=== PATIENT | female | born 1940 | race Caucasian/White ===

== ENCOUNTER 2018-04-10 07:01 | Outpatient (CLI) | payer OTHER | END 2018-04-10 07:02 | disposition home or self-care (01) | LOC: BICULT 07:01 | PROVIDERS: ATTEND Internal Medicine | DX: R19.00 Intra-abdominal and pelvic swelling, mass and lump, unspecified site (principal); R10.9 Unspecified abdominal pain; I70.0 Atherosclerosis of aorta | CPT/HCPCS: 76700 ==

== ENCOUNTER 2019-09-10 09:16 | Outpatient (CLI) | payer MEDICARE, OTHER ==
--- NOTE | 2019-09-10 11:24 | RAD ---
CHEST TWO VIEWS: HISTORY: Dyspnea. FINDINGS: The lungs appear clear. No infiltrate or vascular congestion. Heart and mediastinum unremarkable. Pro minent aortic calcification. Bilateral breast implants which show capsular calcification. Osseous str uctures unremarkable. IMPRESSION: No evidence of acute process. POS: [facility]
== END 2019-09-10 09:17 | disposition home or self-care (01) ==
LOC: RAD 09:16
PROVIDERS: ATTEND Internal Medicine Critical Care Medicine
DX: R06.00 Dyspnea, unspecified (principal)
CPT/HCPCS: 71046

== ENCOUNTER 2019-09-24 10:13 | Outpatient (CLI) | payer MEDICARE, OTHER ==
--- NOTE | 2019-09-24 10:48 | CT ---
CT Chest WO Con History: Thoracic pain. M 55.6 Comparison: Chest radiograph September 10, 2019 Findings: Moderate centrilobular emphysema. There is a small spiculated nodule in the left upper lobe near the apex axial image 19 measuring 5 to 6 mm. This is adjacent to an area of pleural scarring. There is a 7 mm nodule in the left upper lobe axial image 42. Spiculated mass anterior segment left upper lobe axial image 59 measuring 1.7 cm with retraction of t he accessory left horizontal fissure. There is also a part solid nodule within the superior segment left lower lobe axial image 70 measuring 1.5 cm. Calcified granuloma right middle lobe. There is a focal area of bronchial atresia within the lateral left lingula axial image 106. Thoracic spine is without compression deformity. No suspicious osteolytic or osteoblastic lesions. Osseous fusion of the sternum and manubrium. No acute displaced rib fracture. Left superior renal calculi. Impression: 1. Spiculated left upper lobe and part solid right lower lobe pulmonary nodules as described concerni ng for malignancy. Smaller nodules as described may reflect satellite lesions versus noncalcified granulomas. Pulmonary consultation advised. 2. Nonobstructive left renal calculus. 3. No mediastinal adenopathy. 4. Moderate centrilobular emphysema.
== END 2019-09-24 10:14 | disposition home or self-care (01) ==
LOC: BICCT 10:13
PROVIDERS: ATTEND Internal Medicine Critical Care Medicine
DX: M54.6 Pain in thoracic spine (principal); R91.8 Other nonspecific abnormal finding of lung field; N20.0 Calculus of kidney; J43.2 Centrilobular emphysema
CPT/HCPCS: 71250

== ENCOUNTER 2020-02-19 09:18 | Outpatient (CLI) | payer MEDICARE, OTHER ==
--- NOTE | 2020-02-19 09:58 | CT ---
EXAM: CT Chest WO Con PROVIDED CLINICAL HISTORY: Pulmonary nodules COMPARISON: 09/24/2019 FINDINGS: Vascular calcification including coronary calcium is demonstrated. The heart, pericardium and great v essels are suboptimally evaluated in the absence of IV contrast but demonstrate an otherwise unremarkable CT appearance. There is no evidence for thoracic lymph node enlargement. The airway appears patent and of normal caliber. The 4 mm left apical and lateral upper lobe solid nodules appear stable. Stable subtle groundglass nodule involving cranial aspects of superior segment left upper lobe. This measures approximately 9 mm. Stable right middle lobe groundglass nodule measuring about 7 mm. Stable 11 mm right upper lobe groundglass nodule. Interval enlargement of spiculated heart solid anterior segment left upper lobe nodule, now measuring about 2.2 x 1.8 cm in greatest transverse dimensions. Interval enlargement of spiculated part solid nodule involving the superior segment of the right lowe r lobe, now measuring about 2.0 x 1.4 cm in greatest transverse dimensions. Stable parenchymal scarring involving the lingula. No pleural fluid, pleural thickening or pneumothor ax apparent. IMPRESSION: 1. Interval enlargement of part solid left upper lobe and superior segment right lower lobe pulmonary nodules, highly suspicious for malignancy. 2. Stable bilateral groundglass nodules for which continued follow-up is recommended per Earlene scott. 3. Stable 4 mm left upper lobe solid nodules. 4. Atherosclerosis.
== END 2020-02-19 09:19 | disposition home or self-care (01) ==
LOC: BICCT 09:18
PROVIDERS: ATTEND Internal Medicine Critical Care Medicine
DX: R91.1 Solitary pulmonary nodule (principal); R91.8 Other nonspecific abnormal finding of lung field; I25.10 Atherosclerotic heart disease of native coronary artery without angina pectoris; I70.90 Unspecified atherosclerosis
CPT/HCPCS: 71250

== ENCOUNTER 2020-06-02 10:25 | Outpatient (CLI) | payer MEDICARE, OTHER ==
--- NOTE | 2020-06-02 13:19 | CT ---
CT CHEST WITHOUT CONTRAST: DATE: 06/02/2020. PROVIDED CLINICAL HISTORY: Pulmonary nodules. FINDINGS: Comparison is made with the study dated 02/19/2020. The heart, pericardium, and great vessels are suboptimally evaluated in the absence of IV contrast ma terial. Conspicuous atherosclerosis including coronary calcium is redemonstrated. There is no evidence for thoracic lymph node enlargement, with limitations due to lack of IV contrast . Extensive emphysematous changes are redemonstrated. Spiculated part solid nodules involving the left upper lobe and superior segment of right lower lobe are redemonstrated, without significant interval change apparent with respect to the prior study. Ground-glass nodules within the superior segment o f the left lower lobe as well as within the right middle lobe also appear stable. Noncalcified solid -appearing nodules of the left upper lobe do not appear significantly changed. There is no evidence for a new nodule. There is no pleural fluid or pneumothorax apparent. The visualized portions of the upper abdomen demonstrate no acute abnormality. The osseous structures demonstrate no concerning lytic or blastic lesions. IMPRESSION: Stable exam. POS: AH
== END 2020-06-02 10:26 | disposition home or self-care (01) ==
LOC: BICCT 10:25
PROVIDERS: ATTEND Internal Medicine Critical Care Medicine
DX: R91.1 Solitary pulmonary nodule (principal)
CPT/HCPCS: 71250

== ENCOUNTER 2020-09-30 12:03 | Outpatient (CLI) | payer MEDICARE, OTHER ==
--- NOTE | 2020-09-30 14:01 | CT ---
Exam: Chest CT without contrast COMPARISON: 06/02/2010, 09/24/2019, 03/08/2020, correlation is PET imaging 06/29/2020 HISTORY: Follow-up lung nodule FINDINGS: Limited evaluation the mediastinum due to lack of IV contrast. No mass, nephropathy or hematoma Aorta: Extensive atherosclerosis HEART: Normal heart size. No significant pericardial effusion. There are coronary calcifications. Bilateral calcified breast implants are noted Subdiaphragmatic structures do not demonstrate any acute abnormality No lytic or blastic lesions in the osseous structures. Trachea and central bronchi: Patent Pleural spaces: No effusion Pneumothorax: None Right lung: Ill-defined groundglass opacity in the superior segment of the right lower lobe. In 2018, this opacity was 1.7 x 1.0 cm. No appreciable change. Ill-defined opacity in the middle lobe measuring 0.5 x 0.6 cm. In October 07, this lesion measured 0.6 x 0.6 cm Left lung: Redemonstration of a spiculated mass in the left upper lobe measuring 2.5 x 1.3 cm. In 2018, this lesion measured 2.0 x 1.4 cm. In February 2020, the lesion measured 2.8 x 1.4 cm. In May 2020, this lesion measured 1.4 x 2.5 cm. Stable ill-defined opacity in the superior segment of l eft lower lobe measuring 0.6 x 1.0 cm. Stable scarring in the lingula and left lower lobe. Stable 0.4 cm nodule in the lateral aspect of the left upper lobe and stable 0.4 cm nodule in the left lung apex. IMPRESSION: Stable lung parenchymal nodules. Transcribed Date/Time: 09/30/2020 2:22 PM
== END 2020-09-30 12:04 | disposition home or self-care (01) ==
LOC: CT 12:03
PROVIDERS: ATTEND Internal Medicine Critical Care Medicine
DX: R91.8 Other nonspecific abnormal finding of lung field (principal)
CPT/HCPCS: 71250

== ENCOUNTER 2021-04-06 09:28 | Outpatient (CLI) | payer MEDICARE, OTHER | END 2021-04-06 09:29 | disposition home or self-care (01) | LOC: BICCT 09:28 | PROVIDERS: ATTEND Internal Medicine Critical Care Medicine | DX: R91.8 Other nonspecific abnormal finding of lung field (principal) | CPT/HCPCS: 71250 ==

== ENCOUNTER 2021-09-29 08:56 | Outpatient (CLI) | payer MEDICARE, OTHER | END 2021-09-29 08:57 | disposition home or self-care (01) | LOC: PET 08:56 | PROVIDERS: ATTEND Internal Medicine Critical Care Medicine | DX: R91.8 Other nonspecific abnormal finding of lung field (principal); R91.1 Solitary pulmonary nodule | CPT/HCPCS: 78815; A9552 ==

== ENCOUNTER 2022-07-25 08:13 | Outpatient (CLI) | payer MEDICARE, OTHER | END 2022-07-25 08:14 | disposition home or self-care (01) | LOC: BICCT 08:13 | PROVIDERS: ATTEND Internal Medicine Critical Care Medicine | DX: R91.8 Other nonspecific abnormal finding of lung field (principal) | CPT/HCPCS: 71250 ==

== ENCOUNTER 2022-10-25 08:41 | Outpatient (CLI) | payer MEDICARE, OTHER | END 2022-10-25 08:42 | disposition home or self-care (01) | LOC: BICCT 08:41 | PROVIDERS: ATTEND Internal Medicine Critical Care Medicine | DX: R91.8 Other nonspecific abnormal finding of lung field (principal) | CPT/HCPCS: 71250 ==

== ENCOUNTER 2023-03-13 10:34 | Outpatient (CLI) | payer MEDICARE, OTHER | END 2023-03-13 10:35 | disposition home or self-care (01) | LOC: BICMRI 10:34 | PROVIDERS: ATTEND Specialist | DX: M48.062 Spinal stenosis, lumbar region with neurogenic claudication (principal); M47.816 Spondylosis without myelopathy or radiculopathy, lumbar region; M47.815 Spondylosis without myelopathy or radiculopathy, thoracolumbar region; M47.817 Spondylosis without myelopathy or radiculopathy, lumbosacral region | CPT/HCPCS: 72148 ==

== ENCOUNTER 2023-05-08 07:34 | Outpatient (CLI) | payer MEDICARE, OTHER | END 2023-05-08 07:35 | disposition home or self-care (01) | LOC: BICCT 07:34 | PROVIDERS: ATTEND Internal Medicine Critical Care Medicine | DX: R91.8 Other nonspecific abnormal finding of lung field (principal); J98.4 Other disorders of lung | CPT/HCPCS: 71250 ==

== ENCOUNTER 2023-10-01 12:02 | Inpatient (IN) | payer MEDICARE, OTHER ==
[2023-10-01 12:56] LABS: #Basophils 0.1 thou/uL (0.0-0.2); #Eosinphils 0.2 thou/uL (0.0-0.7); #Monocytes 1.3 thou/uL (0.11-0.59); #Neutrophils 5.4 thou/uL (1.40-6.50); %Basophils 0.7 % (0.0-1.0); %Eosinophils 2.3 % (0.0-10.0); %Lymphocytes 17.9 % (21.0-51.0); %Monocytes 14.8 % (0.0-10.0); %Neutrophils 63.6 % (42.0-75.0); Hematocrit 38.1 % (36.0-47.0); Hemoglobin 12.8 g/dL (12.0-16.0); Mean Corpuscular HGB CONC 33.6 g/dL (32.0-36.0); Mean Corpuscular Volume 89.4 fl (78.0-98.0); Mean Platelet Volume 11.2 fL (7.4-10.4); Platelet Count 229 10x3/uL (130-400); RBC Distribution Width 13.3 % (11.5-14.5); Red Blood Cell (RBC) Count 4.26 mill/uL (4.20-5.40); White Blood Cell (WBC) Count 8.5 10x3/uL (4.8-10.8)
[2023-10-01 13:25] LABS: ALT (SGPT) 18 U/L (8-55); AST (SGOT) 30 U/L (5-34); Albumin 4.1 g/dL (3.4-4.8); Alkaline Phosphatase 104 U/L (40-110); Anion Gap 11 mmol/L (10-20); BUN (Urea Nitrogen) 13 mg/dL (9.8-20.1); Bilirubin, Total 0.6 mg/dL (0.2-1.2); Calc. Creatinine Clearance 0 mL/min (70-130); Carbon Dioxide 24 mmol/L (23-31); Chloride 101 mmol/L (98-107); Estimated GFR 79; Globulin 2.3 g/dL (2.4-3.5); Glucose 120 mg/dL (83-110); Potassium 3.4 mmol/L (3.5-5.1); Protein, Total 6.4 g/dL (5.8-8.1); Sodium 133 mmol/L (136-145)
[2023-10-01 13:29] LABS: Troponin I 0.011 ng/mL (< 0.028)
[2023-10-01] MEDS ORDERED: Famotidine/PF 20 mg/2ml Vial ONE (14:16)
[2023-10-01] MEDS ORDERED: Ketorolac Tromethamine 30 MG/ML VIAL ONE (14:38)
[2023-10-01] MEDS ORDERED: Lidocaine 1% w/Epinephrine 1:100K 20 ML VIAL FS SCH (15:00)
[2023-10-01] MEDS ORDERED: Bacitracin 1 PK ONE (15:46)
[2023-10-01] MEDS ORDERED: Lidocaine 1% PF 5 ML VIAL ONE (15:46)
[2023-10-01] MEDS ORDERED: Ondansetron PF 4 MG/2 ML Vial IVP PRN (16:00)
[2023-10-01] MEDS ORDERED: Morphine 2 MG/ML VIAL SLOW IVP PRN (16:00)
[2023-10-01] MEDS ORDERED: Ipratropium/Albuterol 3 ML NEB NEB PRN (16:00)
[2023-10-01] MEDS ORDERED: traMADol HCl 50 MG TAB PO PRN (16:02)
[2023-10-01] MEDS: Acetaminophen 500 MG TAB PO SCH ×2 (17:42→22:15)
[2023-10-01] MEDS: traMADol HCl 50 MG TAB PO SCH (17:47)
[2023-10-01] MEDS: Cyclobenzaprine 10 MG TAB PO PRN (17:47)
[2023-10-01] MEDS: Lactated Ringer's 1,000 ML IV SCH (17:47)
[2023-10-01] MEDS ORDERED: Potassium Chloride 20 MEQ in Premix 1 BAG IVPB SCH (20:00)
[2023-10-01] MEDS: fentaNYL 50 mcg/mL 1 mL Vial SLOW IVP PRN (20:08)
[2023-10-01] MEDS: Senokot S 8.6-50 MG TAB PO SCH (20:10)
[2023-10-01 21:27] VITALS: BMI 21.8
[2023-10-02] MEDS: fentaNYL 50 mcg/mL 1 mL Vial SLOW IVP PRN (00:45)
[2023-10-02] MEDS: Acetaminophen 500 MG TAB PO SCH ×4 (04:34→21:22)
[2023-10-02] MEDS: Cyclobenzaprine 10 MG TAB PO PRN ×2 (04:43→09:59)
[2023-10-02 05:00] LABS: #Monocytes 1.5 thou/uL (0.11-0.59); #Neutrophils 8.8 thou/uL (1.40-6.50); %Basophils 0.4 % (0.0-1.0); %Eosinophils 0.3 % (0.0-10.0); %Lymphocytes 6.3 % (21.0-51.0); %Monocytes 13.1 % (0.0-10.0); %Neutrophils 79.4 % (42.0-75.0); Hematocrit 30.9 % (36.0-47.0); Hemoglobin 10.3 g/dL (12.0-16.0); Mean Corpuscular HGB CONC 33.3 g/dL (32.0-36.0); Mean Corpuscular Hemoglobin 30.1 pg (27.0-31.0); Mean Corpuscular Volume 90.4 fl (78.0-98.0); Mean Platelet Volume 10.9 fL (7.4-10.4); Platelet Count 159 10x3/uL (130-400); RBC Distribution Width 13.2 % (11.5-14.5); Red Blood Cell (RBC) Count 3.42 mill/uL (4.20-5.40); White Blood Cell (WBC) Count 11.1 10x3/uL (4.8-10.8)
[2023-10-02 05:07] LABS: INR-International Normal Ratio 1.1; Prothrombin Time 14.9 sec (12.0-14.7)
[2023-10-02 05:08] LABS: PTT 28.8 sec (22.9-36.1)
[2023-10-02 05:27] LABS: Anion Gap 12 mmol/L (10-20); BUN (Urea Nitrogen) 15 mg/dL (9.8-20.1); Calc. Creatinine Clearance 60 mL/min (70-130); Calcium 8.6 mg/dL (7.8-10.44); Carbon Dioxide 23 mmol/L (23-31); Chloride 101 mmol/L (98-107); Estimated GFR 87; Glucose 104 mg/dL (83-110); Potassium 3.9 mmol/L (3.5-5.1); Sodium 132 mmol/L (136-145)
[2023-10-02] MEDS: Lactated Ringer's 1,000 ML IV SCH ×2 (06:28→12:39)
[2023-10-02] MEDS: traMADol HCl 50 MG TAB PO SCH ×5 (07:11→23:58)
[2023-10-02] MEDS ORDERED: CEFAZOLIN 2 GM in Sodium Chloride 0.9% 100 ML IVPB SCH (07:30)
[2023-10-02] MEDS: Famotidine/PF 20 mg/2ml Vial SLOW IVP SCH (09:34)
[2023-10-02] MEDS: Senokot S 8.6-50 MG TAB PO SCH ×2 (09:35→21:22)
[2023-10-02] MEDS: Atenolol 50 MG TAB PO SCH ×2 (09:35→09:46)
[2023-10-02] MEDS: Polyethylene Glycol 3350 17 GM Packet PO SCH (09:35)
[2023-10-02] MEDS ORDERED: Nebivolol HCl 5 MG TAB PO SCH (10:15)
[2023-10-02] MEDS: Methocarbamol 500 MG TAB PO PRN (12:30)
[2023-10-02] MEDS ORDERED: fentaNYL PF 100 MCG/2 ML SYRINGE ONE (15:13)
[2023-10-02] MEDS ORDERED: PROPOFOL 40 ML ONE (15:13)
[2023-10-02] MEDS ORDERED: Ondansetron PF 4 MG/2 ML Vial ONE ×2 (15:19→15:47)
[2023-10-02] MEDS ORDERED: Rocuronium Bromide 10 MG/ML (10ML VIAL) ONE ×2 (15:19→15:47)
[2023-10-02] MEDS ORDERED: Dexamethasone 4 mg/ml Vial ONE (15:19)
[2023-10-02] MEDS ORDERED: Lidocaine 1% PF 5 ML VIAL ONE ×2 (15:19→15:47)
[2023-10-02] MEDS ORDERED: CEFAZOLIN 2 GM VIAL ONE (15:20)
[2023-10-02] MEDS ORDERED: Sodium Chloride 0.9% 100 ML ONE (15:21)
[2023-10-02] MEDS ORDERED: PHENYLEPHRINE-NS 100 MCG/ML 10 ML SYRINGE ONE ×2 (15:22→15:47)
[2023-10-02] MEDS ORDERED: PROPOFOL 200 MG/20 ML VIAL ONE (15:47)
[2023-10-02] MEDS ORDERED: Dexamethasone 20 MG/5 ML VIAL ONE (15:47)
[2023-10-02] MEDS ORDERED: Glycopyrrolate 0.2 MG/ML 5 ML SYRINGE ONE (15:47)
[2023-10-02 15:59] LABS: Bacteria/HPF None Seen HPF (None Seen); Bilirubin Negative (Negative); Blood, Urine Negative (Negative); CAUTI Indications for Culture Dysuria,urgency,freq; Clarity Clear (Clear); Glucose, Urine (Dipstick) Normal (Negative); Ketone, Urine Negative (Negative); Leukocyte 25 Leu/uL (Negative); Nitrite Negative (Negative); Protein, Urine (Dipstick) Negative (Neg-Trace); RBC/HPF 0-3 HPF (0-3); Specific Gravity, Urine 1.009 (1.002-1.036); Squamous Epithelial None Seen HPF (0-3); Urobilinogen Normal mg/dL (Less than 2); WBC/HPF 0-3 HPF (0-3)
[2023-10-02 16:03] LABS: Urine Culture Reflex No No
[2023-10-02] MEDS ORDERED: ePHEDrine Sulfate 50 MG/10 ML VIAL ONE (16:13)
[2023-10-02] MEDS ORDERED: SUGAMMADEX SODIUM 200 MG/2 ML VIAL ONE (16:31)
[2023-10-02] MEDS: CEFAZOLIN 2 GM in Sodium Chloride 0.9% 100 ML IVPB SCH (23:59)
[2023-10-03] MEDS: Acetaminophen 500 MG TAB PO SCH ×4 (05:28→22:59)
[2023-10-03] MEDS: traMADol HCl 50 MG TAB PO SCH ×4 (06:36→23:01)
[2023-10-03] MEDS: CEFAZOLIN 2 GM in Sodium Chloride 0.9% 100 ML IVPB SCH (06:36)
[2023-10-03] MEDS: Famotidine/PF 20 mg/2ml Vial SLOW IVP SCH (08:35)
[2023-10-03] MEDS: Senokot S 8.6-50 MG TAB PO SCH ×2 (08:35→20:04)
[2023-10-03] MEDS: Polyethylene Glycol 3350 17 GM Packet PO SCH (08:36)
[2023-10-03] MEDS: Calcium Carbonate 500 MG ChewTAB PO PRN ×3 (09:58→20:05)
[2023-10-03] MEDS: Lactated Ringer's 1,000 ML IV SCH ×2 (11:53)
[2023-10-03] MEDS: Methocarbamol 500 MG TAB PO PRN (20:05)
[2023-10-04] MEDS: Acetaminophen 500 MG TAB PO SCH ×4 (05:10→23:13)
[2023-10-04] MEDS: traMADol HCl 50 MG TAB PO SCH ×4 (05:11→23:13)
[2023-10-04] MEDS ORDERED: Levothyroxine Sodium 50 MCG TAB PO SCH (08:45)
[2023-10-04] MEDS: Calcium Carbonate 500 MG ChewTAB PO PRN ×2 (08:48→21:28)
[2023-10-04] MEDS: Senokot S 8.6-50 MG TAB PO SCH ×2 (08:49→21:28)
[2023-10-04] MEDS: Polyethylene Glycol 3350 17 GM Packet PO SCH (08:49)
[2023-10-04] MEDS: Methocarbamol 500 MG TAB PO PRN (17:20)
[2023-10-04] MEDS: Temazepam 15 MG CAP PO SCH ×2 (21:29→23:13)
[2023-10-05] MEDS: traMADol HCl 50 MG TAB PO SCH ×2 (05:32→12:56)
[2023-10-05] MEDS: Acetaminophen 500 MG TAB PO SCH ×2 (05:32→11:41)
[2023-10-05] MEDS ORDERED: Levothyroxine Sodium 50 MCG TAB PO SCH (06:00)
[2023-10-05] MEDS: Senokot S 8.6-50 MG TAB PO SCH (09:19)
[2023-10-05] MEDS: Polyethylene Glycol 3350 17 GM Packet PO SCH (09:19)
[2023-10-05] MEDS: Methocarbamol 500 MG TAB PO PRN (09:27)
[2023-10-05 13:05] VITALS: BP 149/67; TEMP 98.6
== END 2023-10-05 14:30 | DRG 522 ==
LOC: ERS 12:02 → SURG A 16:03
PROVIDERS: ADMIT Surgery; ATTEND Surgery
PROC: 0HQGXZZ Repair Left Hand Skin, External Approach (ICD-10-PCS; 2023-10-01)
PROC: 0HQ0XZZ Repair Scalp Skin, External Approach (ICD-10-PCS; 2023-10-01)
PROC: 0SRS0JA Replacement of Left Hip Joint, Femoral Surface with Synthetic Substitute, Uncemented, Open Approach (ICD-10-PCS; principal; 2023-10-02)
DX: S72.032A Displaced midcervical fracture of left femur, initial encounter for closed fracture (principal); S42.202A Unspecified fracture of upper end of left humerus, initial encounter for closed fracture; I10 Essential (primary) hypertension; S01.01XA Laceration without foreign body of scalp, initial encounter; S61.412A Laceration without foreign body of left hand, initial encounter; W19.XXXA Unspecified fall, initial encounter; D32.9 Benign neoplasm of meninges, unspecified; Y92.009 Unspecified place in unspecified non-institutional (private) residence as the place of occurrence of the external cause; Z88.2 Allergy status to sulfonamides
CPT/HCPCS: 12002; 36415; 36416; 70450; 71045; 72125; 72170; 80048; 80053; 81001; 84443; 84484; 85025; 85610; 85730; 93005; 96374; 96375; C1713; C1776; G0390; J1100; J1650; J1885; J2405; J2704; J3010; J3480; J3490; J7120; S0028

== ENCOUNTER 2023-11-01 08:54 | Outpatient (CLI) | payer MEDICARE, OTHER | END 2023-11-01 08:55 | disposition home or self-care (01) | LOC: RAD 08:54 | PROVIDERS: ATTEND Internal Medicine Critical Care Medicine | DX: R06.00 Dyspnea, unspecified (principal); J98.4 Other disorders of lung | CPT/HCPCS: 71046 ==

== ENCOUNTER 2024-02-08 09:26 | Outpatient (CLI) | payer MEDICARE, OTHER | END 2024-02-08 09:27 | disposition home or self-care (01) | LOC: BICCT 09:26 | PROVIDERS: ATTEND Internal Medicine Critical Care Medicine | DX: R91.8 Other nonspecific abnormal finding of lung field (principal) | CPT/HCPCS: 71250 ==

== ENCOUNTER 2024-06-03 16:37 | Inpatient (IN) | payer MEDICARE, OTHER ==
[2024-06-03] MEDS ORDERED: Ondansetron PF 4 MG/2 ML Vial IVP PRN (18:05)
[2024-06-03 18:21] VITALS: BMI 20.5
[2024-06-03] MEDS: Budesonide 0.5 MG/2 ML NEB INH SCH (18:52)
[2024-06-03] MEDS: Albuterol 2.5 MG (3 mL) NEB NEB PRN (18:54)
[2024-06-03] MEDS: Calcium Carbonate 500 MG ChewTAB PO PRN (19:54)
[2024-06-03] MEDS: Cyclobenzaprine 10 MG TAB PO PRN (19:54)
[2024-06-03] MEDS: Acetaminophen 500 MG TAB PO PRN (19:57)
[2024-06-03] MEDS: Atorvastatin Calcium 10 MG TAB PO SCH (20:02)
[2024-06-03] MEDS: Temazepam 15 MG CAP PO PRN (22:19)
[2024-06-04 03:58] LABS: #Basophils 0.05 10x3/uL (0.0-0.2); %Basophils 0.3 % (0.0-1.0); %Eosinophils 0.8 % (0.0-10.0); %Lymphocytes 6.3 % (21.0-51.0); %Monocytes 11.7 % (0.0-10.0); %Neutrophils 80.1 % (42.0-75.0); Hematocrit 38.2 % (36.0-47.0); Hemoglobin 12.9 g/dL (12.0-16.0); Mean Corpuscular HGB CONC 33.8 g/dL (32.0-36.0); Mean Corpuscular Hemoglobin 31.3 pg (27.0-31.0); Mean Corpuscular Volume 92.7 fL (78.0-98.0); Mean Platelet Volume 9.9 fL (7.4-10.4); Platelet Count 278 10x3/uL (130-400); RBC Distribution Width 13.8 % (11.5-14.5); Red Blood Cell (RBC) Count 4.12 mill/uL (4.20-5.40)
[2024-06-04 04:38] LABS: Anion Gap 13 mmol/L (10-20); BUN (Urea Nitrogen) 17 mg/dL (9.8-20.1); Calc. Creatinine Clearance 45 mL/min (70-130); Calcium 9.7 mg/dL (7.8-10.44); Carbon Dioxide 26 mmol/L (23-31); Chloride 96 mmol/L (98-107); Estimated GFR 68; Glucose 98 mg/dL (83-110); Potassium 4.4 mmol/L (3.5-5.1); Sodium 131 mmol/L (136-145)
[2024-06-04] MEDS: Levothyroxine Sodium 50 MCG TAB PO SCH (06:17)
[2024-06-04] MEDS: Spironolactone 25 MG TAB PO SCH (10:56)
[2024-06-04] MEDS: Pantoprazole DR 40 MG TAB PO SCH (10:56)
[2024-06-04] MEDS: Nebivolol HCl 2.5 MG TAB PO SCH (10:57)
[2024-06-05] MEDS ORDERED: fentaNYL 50 mcg/mL 1 mL Vial ONE (07:37)
[2024-06-05 11:29] LABS: #Basophils 0.03 10x3/uL (0.0-0.2); %Basophils 0.2 % (0.0-1.0); %Eosinophils 0.6 % (0.0-10.0); %Lymphocytes 2.6 % (21.0-51.0); %Monocytes 9.3 % (0.0-10.0); %Neutrophils 86.7 % (42.0-75.0); Hematocrit 37.6 % (36.0-47.0); Hemoglobin 12.7 g/dL (12.0-16.0); Mean Corpuscular HGB CONC 33.8 g/dL (32.0-36.0); Mean Corpuscular Hemoglobin 30.8 pg (27.0-31.0); Mean Corpuscular Volume 91.3 fL (78.0-98.0); Mean Platelet Volume 9.7 fL (7.4-10.4); Platelet Count 245 10x3/uL (130-400); RBC Distribution Width 13.7 % (11.5-14.5); Red Blood Cell (RBC) Count 4.12 mill/uL (4.20-5.40)
[2024-06-05 11:46] LABS: ALT (SGPT) 15 U/L (8-55); AST (SGOT) 25 U/L (5-34); Albumin 3.2 g/dL (3.4-4.8); Alkaline Phosphatase 89 U/L (40-110); Anion Gap 9 mmol/L (10-20); BUN (Urea Nitrogen) 20 mg/dL (9.8-20.1); Bilirubin, Total 0.9 mg/dL (0.2-1.2); Calc. Creatinine Clearance 45 mL/min (70-130); Calcium 9.5 mg/dL (7.8-10.44); Carbon Dioxide 24 mmol/L (23-31); Chloride 97 mmol/L (98-107); Estimated GFR 68; Globulin 2.8 g/dL (2.4-3.5); Glucose 120 mg/dL (83-110); Potassium 4.4 mmol/L (3.5-5.1); Sodium 126 mmol/L (136-145)
[2024-06-05] MEDS: Sodium Chloride 0.9% 1,000 ML IV SCH (12:50)
[2024-06-05 13:13] LABS: Troponin I 0.014 ng/mL (< 0.028)
[2024-06-05] MEDS: Sodium Chloride 0.9% 500 ML IV SCH (15:54)
[2024-06-05 17:00] LABS: Bacteria/HPF 4+ HPF (None Seen); Bilirubin Negative (Negative); Blood, Urine Negative (Negative); Clarity Turbid (Clear); Glucose, Urine (Dipstick) Normal (Negative); Ketone, Urine Negative (Negative); Leukocyte 500 Leu/uL (Negative); Nitrite 1+ (Negative); Protein, Urine (Dipstick) Negative (Neg-Trace); RBC/HPF 0-3 HPF (0-3); Specific Gravity, Urine 1.018 (1.002-1.036); Squamous Epithelial None Seen HPF (0-3); Urobilinogen Normal mg/dL (Less than 2); WBC/HPF 21-50 HPF (0-3)
[2024-06-05 17:25] LABS: Creatinine, Urine 109.37 mg/dL (47-110)
[2024-06-05 17:59] LABS: Anion Gap 9 mmol/L (10-20); BUN (Urea Nitrogen) 18 mg/dL (9.8-20.1); Calc. Creatinine Clearance 45 mL/min (70-130); Calcium 8.8 mg/dL (7.8-10.44); Carbon Dioxide 24 mmol/L (23-31); Chloride 99 mmol/L (98-107); Estimated GFR 68; Glucose 97 mg/dL (83-110); Potassium 4.4 mmol/L (3.5-5.1); Sodium 128 mmol/L (136-145)
[2024-06-05] MEDS: Senokot S 8.6-50 MG TAB PO PRN (20:56)
[2024-06-06] MEDS ORDERED: Levothyroxine Sodium 50 MCG TAB ONE (05:23)
[2024-06-06 08:01] LABS: #Basophils 0.04 10x3/uL (0.0-0.2); %Basophils 0.4 % (0.0-1.0); %Eosinophils 2.3 % (0.0-10.0); %Lymphocytes 9.9 % (21.0-51.0); %Monocytes 11.3 % (0.0-10.0); %Neutrophils 75.3 % (42.0-75.0); Hematocrit 37.8 % (36.0-47.0); Hemoglobin 12.8 g/dL (12.0-16.0); Mean Corpuscular HGB CONC 33.9 g/dL (32.0-36.0); Mean Corpuscular Hemoglobin 31.5 pg (27.0-31.0); Mean Corpuscular Volume 93.1 fL (78.0-98.0); Mean Platelet Volume 10.1 fL (7.4-10.4); Platelet Count 267 10x3/uL (130-400); RBC Distribution Width 13.8 % (11.5-14.5); Red Blood Cell (RBC) Count 4.06 mill/uL (4.20-5.40)
[2024-06-06 08:05] LABS: ALT (SGPT) 18 U/L (8-55); AST (SGOT) 31 U/L (5-34); Albumin 3.2 g/dL (3.4-4.8); Alkaline Phosphatase 90 U/L (40-110); Anion Gap 10 mmol/L (10-20); BUN (Urea Nitrogen) 16 mg/dL (9.8-20.1); Bilirubin, Total 0.6 mg/dL (0.2-1.2); Calc. Creatinine Clearance 47 mL/min (70-130); Calcium 9.6 mg/dL (7.8-10.44); Carbon Dioxide 24 mmol/L (23-31); Chloride 99 mmol/L (98-107); Estimated GFR 71; Glucose 98 mg/dL (83-110); Potassium 4.3 mmol/L (3.5-5.1); Protein, Total 6.2 g/dL (5.8-8.1); Sodium 129 mmol/L (136-145)
[2024-06-06 19:37] LABS: Potassium 3.8 mmol/L (3.5-5.1); Sodium 130 mmol/L (136-145)
[2024-06-07 08:12] LABS: #Basophils 0.03 10x3/uL (0.0-0.2); %Basophils 0.3 % (0.0-1.0); %Eosinophils 2.5 % (0.0-10.0); %Lymphocytes 12.7 % (21.0-51.0); %Monocytes 9.6 % (0.0-10.0); %Neutrophils 74.3 % (42.0-75.0); Hematocrit 35.8 % (36.0-47.0); Hemoglobin 12.4 g/dL (12.0-16.0); Mean Corpuscular HGB CONC 34.6 g/dL (32.0-36.0); Mean Corpuscular Hemoglobin 31.3 pg (27.0-31.0); Mean Corpuscular Volume 90.4 fL (78.0-98.0); Mean Platelet Volume 9.5 fL (7.4-10.4); Platelet Count 254 10x3/uL (130-400); RBC Distribution Width 13.6 % (11.5-14.5); Red Blood Cell (RBC) Count 3.96 mill/uL (4.20-5.40)
[2024-06-07 08:25] LABS: Anion Gap 10 mmol/L (10-20); BUN (Urea Nitrogen) 12 mg/dL (9.8-20.1); Calc. Creatinine Clearance 47 mL/min (70-130); Calcium 9.2 mg/dL (7.8-10.44); Carbon Dioxide 22 mmol/L (23-31); Chloride 100 mmol/L (98-107); Estimated GFR 72; Glucose 153 mg/dL (83-110); Potassium 3.6 mmol/L (3.5-5.1); Sodium 128 mmol/L (136-145)
[2024-06-07] MEDS: Sodium Chloride 1 GM TAB PO SCH ×2 (10:11→14:29)
[2024-06-07] MEDS: Ondansetron ODT 4 MG TAB PO PRN (14:33)
[2024-06-08 05:00] LABS: Anion Gap 10 mmol/L (10-20); BUN (Urea Nitrogen) 15 mg/dL (9.8-20.1); Calc. Creatinine Clearance 51 mL/min (70-130); Calcium 9.2 mg/dL (7.8-10.44); Carbon Dioxide 22 mmol/L (23-31); Chloride 103 mmol/L (98-107); Estimated GFR 79; Glucose 88 mg/dL (83-110); Sodium 131 mmol/L (136-145)
[2024-06-08] MEDS: predniSONE 20 MG TAB PO SCH (10:02)
[2024-06-08 16:36] VITALS: BP 132/72; TEMP 98
== END 2024-06-08 16:58 | disposition home or self-care (01) | DRG 200 ==
LOC: 2NO 18:00 → OBSVTOIN 06-04 14:50
PROVIDERS: ADMIT Internal Medicine; ATTEND Family Medicine
DX: J95.811 Postprocedural pneumothorax (principal); E22.2 Syndrome of inappropriate secretion of antidiuretic hormone; I10 Essential (primary) hypertension; E78.5 Hyperlipidemia, unspecified; E03.9 Hypothyroidism, unspecified; J44.9 Chronic obstructive pulmonary disease, unspecified; I95.9 Hypotension, unspecified; E88.09 Other disorders of plasma-protein metabolism, not elsewhere classified; R91.1 Solitary pulmonary nodule; Z87.891 Personal history of nicotine dependence; Z88.2 Allergy status to sulfonamides; Z88.8 Allergy status to other drugs, medicaments and biological substances; Z79.899 Other long term (current) drug therapy; Z90.89 Acquired absence of other organs; Z98.49 Cataract extraction status, unspecified eye; Z98.890 Other specified postprocedural states
CPT/HCPCS: 32408; 36415; 71045; 77012; 80048; 80053; 81003; 81015; 82570; 83930; 83935; 84300; 84443; 84484; 85025; 85610; 85730; 87102; 88305; 88333; 88334; 88341; 88342; 93005; 93010; 94640; 99152; 99153; G0378; J2250; J3010; J7030; J7050; J7512; J7611; J7626; Q0162

== ENCOUNTER 2024-06-10 13:30 | Outpatient (CLI) | payer MEDICARE, OTHER | END 2024-06-10 13:31 | disposition home or self-care (01) | LOC: RAD 13:30 | PROVIDERS: ATTEND Internal Medicine Critical Care Medicine | DX: R06.00 Dyspnea, unspecified (principal); J93.9 Pneumothorax, unspecified | CPT/HCPCS: 71046 ==

== ENCOUNTER 2024-10-20 07:43 | Outpatient (CLI) | payer MEDICARE, OTHER | END 2024-10-20 07:44 | disposition home or self-care (01) | LOC: CT 07:43 | PROVIDERS: ATTEND Radiology Radiation Oncology | DX: C34.12 Malignant neoplasm of upper lobe, left bronchus or lung (principal); C34.11 Malignant neoplasm of upper lobe, right bronchus or lung; R91.8 Other nonspecific abnormal finding of lung field | CPT/HCPCS: 36415; 71260; 82565 ==

== ENCOUNTER 2025-01-09 12:44 | Outpatient (CLI) | payer MEDICARE, OTHER | END 2025-01-09 12:45 | disposition home or self-care (01) | LOC: BICMRI 12:44 | PROVIDERS: ATTEND Specialist | DX: M47.26 Other spondylosis with radiculopathy, lumbar region (principal); M43.17 Spondylolisthesis, lumbosacral region; M41.9 Scoliosis, unspecified; M89.9 Disorder of bone, unspecified; M47.817 Spondylosis without myelopathy or radiculopathy, lumbosacral region; M47.815 Spondylosis without myelopathy or radiculopathy, thoracolumbar region | CPT/HCPCS: 72120; 72148 ==

== ENCOUNTER 2025-03-12 13:21 | Outpatient (CLI) | payer MEDICARE, OTHER | END 2025-03-12 13:22 | disposition home or self-care (01) | LOC: MRI 13:21 | PROVIDERS: ATTEND Radiology Radiation Oncology | DX: C34.90 Malignant neoplasm of unspecified part of unspecified bronchus or lung (principal); C79.51 Secondary malignant neoplasm of bone; M47.814 Spondylosis without myelopathy or radiculopathy, thoracic region; M48.04 Spinal stenosis, thoracic region | CPT/HCPCS: 72157 ==

== ENCOUNTER 2025-09-03 10:15 | Outpatient (CLI) | payer MEDICARE, OTHER | END 2025-09-03 10:16 | disposition home or self-care (01) | LOC: PET 10:15 | PROVIDERS: ATTEND Internal Medicine Hematology & Oncology | DX: C34.90 Malignant neoplasm of unspecified part of unspecified bronchus or lung (principal); C79.51 Secondary malignant neoplasm of bone; K76.9 Liver disease, unspecified; M89.9 Disorder of bone, unspecified; Z98.82 Breast implant status; Z79.899 Other long term (current) drug therapy | CPT/HCPCS: 78815; A9552 ==

== ENCOUNTER 2025-09-07 11:11 | Emergency (ER) | payer MEDICARE, OTHER ==
[2025-09-07 12:07] LABS: #Basophils 0.03 10x3/uL (0.0-0.2); #Eosinophils 0.12 10x3/uL (0.0-0.7); #Monocytes 0.79 10x3/uL (0.11-0.59); #Neutrophils 4.74 10x3/uL (1.40-6.50); %Basophils 0.5 % (0.0-1.0); %Eosinophils 1.9 % (0.0-10.0); %Lymphocytes 8.5 % (21.0-51.0); %Monocytes 12.7 % (0.0-10.0); %Neutrophils 76.2 % (42.0-75.0); Hematocrit 35.4 % (36.0-47.0); Hemoglobin 11.9 g/dL (12.0-16.0); Mean Corpuscular Hemoglobin 29.7 pg (27.0-31.0); Mean Corpuscular Volume 88.3 fL (78.0-98.0); Platelet Count 240 10x3/uL (130-400); Red Blood Cell (RBC) Count 4.01 mill/uL (4.20-5.40); White Blood Cell (WBC) Count 6.22 10x3/uL (4.8-10.8)
[2025-09-07 12:26] LABS: ALT (SGPT) 19 U/L (Less than 34); AST (SGOT) 38 U/L (11-34); Albumin 3.8 g/dL (3.1-4.5); Alkaline Phosphatase 254 U/L (40-110); Anion Gap 16 mmol/L (10-20); BUN (Urea Nitrogen) 22 mg/dL (9.8-20.1); Bilirubin, Total 0.5 mg/dL (0.3-1.2); Calc. Creatinine Clearance 0 mL/min (70-130); Calcium 9.8 mg/dL (7.8-10.44); Carbon Dioxide 24 mmol/L (23-31); Chloride 102 mmol/L (98-107); Globulin 3.1 g/dL (2.4-3.5); Glucose 103 mg/dL (83-110); Magnesium 1.7 mg/dL (1.6-2.6); Potassium 3.9 mmol/L (3.5-5.1); Sodium 138 mmol/L (136-145)
[2025-09-07] MEDS ORDERED: HYDROcodone/Acetaminophen 10/325 mg Tablet ONE (12:57)
== END 2025-09-07 13:39 | disposition home or self-care (01) ==
LOC: ERS 11:11
DX: S52.502A Unspecified fracture of the lower end of left radius, initial encounter for closed fracture (principal); R29.700 NIHSS score 0; I10 Essential (primary) hypertension; E03.9 Hypothyroidism, unspecified; J44.9 Chronic obstructive pulmonary disease, unspecified; W01.0XXA Fall on same level from slipping, tripping and stumbling without subsequent striking against object, initial encounter; Z79.899 Other long term (current) drug therapy
CPT/HCPCS: 73110; 83615; 83735; 84436; 84484; 84550; 93005; J2270; Q0162; 29105; 80053; 84443; 85025; 96361; 96374